=== PATIENT | male | born 2005 | race Hispanic/Latino ===

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

== ENCOUNTER 2025-06-27 10:26 | Emergency (ER) | payer OTHER, SELFPAY ==
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
--- NOTE | ~2025-06-27 | CT_ITS ---
EXAMINATION: CT brain wo con DATE: 06/27/2025 12:40 INDICATION: Headache TECHNIQUE: Computed tomography (CT) of the head was performed without intravenous contrast. The dose-length product was 605.33 mGy-cm. COMPARISON: None FINDINGS: No gross intracranial mass effect or hemorrhage. No large acute ischemic event. Calvarial structures appear intact. IMPRESSION: 1. No gross acute intracranial mass effect or hemorrhage. For persisting headaches, correlation with nonemergent brain MRI recommended for optimal evaluation. Reviewed, dictated and finalized at location A. K LOADER IMPRESSION: 1. No gross acute intracranial mass effect or hemorrhage. For persisting headaches, correlation with nonemergent brain MRI recommended fo r optimal evaluation.
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
[2025-06-27 10:52] VITALS: BP 142/83; PULSE 71; RESP 18; TEMP 36.9; O2SAT 100
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
[2025-06-27 13:36] VITALS: BP 122/64; PULSE 62; RESP 14; O2SAT 100
== END 2025-06-27 13:37 | disposition home or self-care (01) ==
LOC: ANHED 13:28
PROVIDERS: Emergency Provider Physician Assistant; PCP Registered Nurse
DX: S39.012A Strain of muscle, fascia and tendon of lower back, initial encounter (principal); S76.012A Strain of muscle, fascia and tendon of left hip, initial encounter; V49.50XA Passenger injured in collision with unspecified motor vehicles in traffic accident, initial encounter
CPT/HCPCS: 70450; 71046; 72100; 72125; 73502; 73590; 99284